=== PATIENT | female | born 2000 ===

== ENCOUNTER 2024-11-10 10:24 | Emergency (ER) | payer OTHER ==
[~2024-11-10] VITALS: Ht 165.1 cm; Wt 59.9 kg
[2024-11-10 10:27] VITALS: BP 126/93
[2024-11-10] MEDS ORDERED: Diphth,Pertuss(Acell),Tet Vac 0.5 ML VIAL IM ONE (10:35)
[2024-11-10] MEDS ORDERED: Lidocaine 4% 1 Patch TOP ONE (10:50)
[2024-11-10] MEDS ORDERED: Ibuprofen 600 MG Tab PO ONE (10:50)
[2024-11-10] MEDS ORDERED: Acetaminophen 500 MG Tab PO ONE (10:50)
[2024-11-10] MEDS ORDERED: Gabapentin 300 MG Cap PO ONE (10:50)
== END 2024-11-10 13:28 | disposition home or self-care (01) ==
LOC: ER 10:24
DX: S61.011A Laceration without foreign body of right thumb without damage to nail, initial encounter (principal); R55 Syncope and collapse; W07.XXXA Fall from chair, initial encounter
CPT/HCPCS: 12031; 70360; 73130; 90471; 90715; 99284-25; A9270